=== PATIENT | male | born 1985 | race African-American/Black ===

== ENCOUNTER 2025-01-27 22:44 | Emergency (ER) | payer SELFPAY ==
[~2025-01-27] VITALS: Ht 188 cm; Wt 100.6 kg
[2025-01-27 22:50] VITALS: O2SAT 100
[2025-01-28 00:57] LABS: BASOPHILS % 0.4 % (0.0-2.0); EOSINOPHILS % 1.4 % (0.0-5.0); HEMATOCRIT. 44.8 % (42.0-52.0); HEMOGLOBIN. 14.3 g/dL (14.0-18.0); LYMPHOCYTES % 19.1 % (20.0-50.0); MEAN CORPUSCULAR HEMOGLOBIN 26.1 pg (28.0-32.0); MEAN CORPUSCULAR HGB CONC 31.8 g/dL (31.0-37.0); MEAN CORPUSCULAR VOLUME 82.2 fL (80.0-94.0); MONOCYTES % 9.8 % (2.0-8.0); NEUTROPHILS % 69.3 % (40.0-76.0); PLATELET 307 x1000/uL (130-400); RED BLOOD CELL COUNT 5.46 mill/uL (4.7-6.1); RED CELL DISTRIBUTION WIDTH 13.9 % (11.6-14.6); WHITE BLOOD COUNT 11.6 x1000/uL (4.5-11.0)
[2025-01-28 01:24] LABS: CHLORIDE 106 mEq/L (98-107); POTASSIUM 3.7 mEq/L (3.5-5.1); SODIUM 138 mEq/L (136-145)
[2025-01-28 01:25] LABS: CALCIUM 9.9 mg/dL (8.7-10.4); CARBON DIOXIDE 23 mEq/L (21-32)
[2025-01-28] MEDS: SODIUM CHLORIDE 0.9% 1,000 ML IV ONE (01:28)
[2025-01-28 01:30] LABS: CREATININE 0.9 mg/dL (0.6-1.3); GLUCOSE 90 mg/dL (70-105); UREA NITROGEN BLOOD 8 mg/dL (9-23)
[2025-01-28] MEDS: DEXAMETHASONE 10 MG/ML VIAL IV ONE (01:33)
[2025-01-28] MEDS: KETOROLAC 30MG/ML VIAL IV STA (01:34)
[2025-01-28 01:41] LABS: TROPONIN I HIGH SENSITIVITY 6 ng/L (3.0-53)
[2025-01-28] MEDS: AMPICILLIN SOD/SULBACTAM NA 3 G in SODIUM CHLORIDE 0.9% 100 ML IV STA (01:42)
[2025-01-28 03:55] VITALS: BP 161/90; PULSE 79; RESP 16; TEMP 36.8; O2SAT 98
[2025-01-28] MEDS ORDERED: P20 MT (04:08)
[2025-01-28] MEDS ORDERED: NAPR-1176 MT (04:08)
[2025-01-28] MEDS ORDERED: AMOX500T2 MT (04:19)
[2025-01-28] MEDS ORDERED: IOHEXOL-300 100 ML BOTTLE ONE (05:41)
== END 2025-01-28 04:28 | disposition home or self-care (01) ==
LOC: ER 23:39
DX: J03.90 Acute tonsillitis, unspecified (principal); Z79.1 Long term (current) use of non-steroidal anti-inflammatories (NSAID); Z79.52 Long term (current) use of systemic steroids; Z79.899 Other long term (current) drug therapy
CPT/HCPCS: 99285; 80048; 87430; 85025; 84484; 87070; 36415; 70491; 93005; 96365; 96375; Q9967; J0295; J1100; J1885; J7050; J7030; Z7610 ×3; A4606